=== PATIENT | female | born 1985 | race Caucasian/White ===

== ENCOUNTER → 2016-12-17 | Outpatient (CLI) | payer OTHER ==
[~2016-12-17] MED LIST: ATIVAN0.5 MG PO; BENTYL 10 MG CA10 M1 PO; BENTYL 20 MG TA20 M1 PO; CEFTIN 250 MG250 MG PO; CELEXA 10 MG TA10 M1 PO; CIPROFLOXACIN500 M1 PO; COMPAZINE10 MG PO; DARVOCET-N 1001 EACH PO; DICLEGIS DR 101 EACH PO; DOXYCYCLINE 10100 MG PO; FLAGYL 250 MG250 MG PO; FLONASE 0.05%50 MCG NS; HYDROXYZINE HCL25 M1 PO; IBUPROFEN 600600 M1 PO; IBUPROFEN 800800 M1; LINZESS290 MCG PO; LOMOTIL TABLET1 EACH PO; METFORMIN HCL500 MG PO; NAPROSYN500 MG PO; NORCO 5-325 TA1 EACH PO; PEPCID20 MG PO; PHENERGAN 25 MG25 M1 PO; PROAIR HFA8.5 GM IH; PROTONIX40 M1 PO; RISPERDAL 1 MG T1 MG PO; RISPERDAL2 MG PO; SUMYCIN 500500 MG PO; VISTARIL50 MG PO; WELLBUTRIN SR150 MG PO; ZOFRAN ODT4 MG PO; ZOFRAN4 MG PO
--- NOTE | ~2016-12-17 | 24HR ---
[address] [address] [place] [address] 24 HR ELECTROCARDIOGRAM REPORT Name: DARCIE CONSTANTINO Room #: REG CL 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 Study duration 24 hours and technical quality good. 2. Predominant rhythm sinus with sinus arrhythmia at an average heart rate of 85 bpm, range 50-152bpm. Longest RR interval 1.3sec. 3. Rare, isolated atrial premature complexes. No atrial fibrillation or atrial flutter. No heart block. No SVT 4. One PVC. No ventricular tachycardia 5. No symptoms reported. Electronically Signed On 12-19-2016 8:02:34 CDT by Feliz Hill [email or web address] <ELECTRONICALLY SIGNED> By: Feliz Hill MD, [facility] 12/19/16 0802 1645 1645 Feliz Hill MD, FAC /EPI
== END ==
LOC: CV 16:13
DX: R00.2 Palpitations (principal)

== ENCOUNTER 2017-03-26 12:50 | Emergency (ER) | payer OTHER ==
[~2017-03-26] VITALS: Ht 177.8 cm; Wt 74.8 kg
--- NOTE | ~2017-03-26 | EKG ---
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1985 Requested By: Neo Ellis Order Number: [id number] MD: Feliz Hill Measurements Intervals [place] Rate: 84 P: 60 HI: 189 QRS: 59 QRSD: 82 T: 47 QT: 377 QTc: 446 Interpretive Statements Sinus rhythm RSR' in V1 or V2, probably normal variant Compared to ECG 01/01/2009 11:20:40 RSR' in V1 or V2 now present Electronically Signed On 03-27-2017 8:55:28 CDT by Feliz Hill [email or web address] <ELECTRONICALLY SIGNED> By: Feliz iHll MD, [facility] 03/27/17 0855 1256 1256 Feliz Hill MD, [facility] /EPI
[2017-03-26 13:55] LABS: ABSOLUTE NEUTROPHILS 5.6 thou/uL (1.4-8.2); BASOPHILS 0.3 % (0.0-2.0); EOSINOPHILS 0.3 % (0.0-3.0); HEMOGLOBIN 13.5 gm/dL (12.0-15.0); LYMPHOCYTES 26.2 % (24.0-44.0); MCHC 34.5 g/dL (28.0-37.0); MCV 92.7 fL (80.0-100.0); MONOCYTES 4.5 % (1.0-8.0); PLATELET COUNT 232 thou/uL (150-400); POLYS 68.7 % (36.0-66.0); RBC 4.21 mil/uL (4.20-5.00); RDW 13.1 % (10.5-14.5); WBC 8.1 thou/uL (4.0-11.0)
[2017-03-26 13:56] LABS: MANUAL DIFF NO
[2017-03-26 14:01] LABS: ANION GAP 5 mmol/L (7-16); BUN 12 mg/dL (7-18); CALCIUM 9.3 mg/dL (8.5-10.1); CHLORIDE 105 mmol/L (98-107); CO2 29 mmol/L (21-32); CREATININE 0.9 mg/dL (0.6-1.0); GLUCOSE 102 mg/dL (74-106); SODIUM 139 mmol/L (136-145)
[2017-03-26 14:11] LABS: TROPONIN-I < 0.04 ng/mL (<0.04-0.07)
== END 2017-03-26 15:08 | disposition home or self-care (01) ==
LOC: ER 12:50
PROVIDERS: Emergency Medicine
DX: F41.9 Anxiety disorder, unspecified (principal); E28.2 Polycystic ovarian syndrome; Z90.89 Acquired absence of other organs; Z88.6 Allergy status to analgesic agent; Z88.8 Allergy status to other drugs, medicaments and biological substances

== ENCOUNTER 2017-04-20 15:07 | Emergency (ER) | payer OTHER ==
[~2017-04-20] VITALS: Ht 180.3 cm; Wt 72.6 kg
--- NOTE | ~2017-04-20 | EKG ---
[address] [place] [address] ELECTROCARDIOGRAM REPORT Name: DOUGIEDARCIE VITAL Room #: DEP [facility]#: [id number] Admission: 04/20/17 Attend Phys: Discharge: 04/20/17 Date of : 87 Report #: [id number] THIS REPORT FOR: //name// 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
[2017-04-20] MEDS ORDERED: METFORMIN HCL500 MG PO (15:12)
[2017-04-20 15:45] LABS: ABSOLUTE NEUTROPHILS 4.5 thou/uL (1.4-8.2); BASOPHILS 0.5 % (0.0-2.0); HEMATOCRIT 41.6 % (37.0-47.0); HEMOGLOBIN 13.8 gm/dL (12.0-15.0); LYMPHOCYTES 28.8 % (24.0-44.0); MCH 31.1 pg (26.0-34.0); MCHC 33.2 g/dL (28.0-37.0); MCV 93.7 fL (80.0-100.0); MONOCYTES 4.9 % (1.0-8.0); PLATELET COUNT 234 thou/uL (150-400); POLYS 64.8 % (36.0-66.0); RBC 4.44 mil/uL (4.20-5.00); RDW 12.9 % (10.5-14.5)
[2017-04-20 15:46] LABS: MANUAL DIFF NO
[2017-04-20 15:49] LABS: ANION GAP 9 mmol/L (7-16); BUN 11 mg/dL (7-18); CALCIUM 8.8 mg/dL (8.5-10.1); CHLORIDE 103 mmol/L (98-107); CO2 26 mmol/L (21-32); CREATININE 0.9 mg/dL (0.6-1.0); GLUCOSE 105 mg/dL (74-106); POTASSIUM 3.7 mmol/L (3.5-5.1); SODIUM 138 mmol/L (136-145)
[2017-04-20 15:58] LABS: ALBUMIN 4.1 g/dL (3.4-5.0); ALKALINE PHOSPHATASE 73 U/L (46-116); SGOT 11 U/L (15-37); SGPT 17 U/L (30-65); TOTAL BILIRUBIN 0.2 mg/dL (<0.1-1.0); TOTAL PROTEIN 7.5 g/dL (6.4-8.2); TROPONIN-I < 0.04 ng/mL (<0.04-0.07)
== END 2017-04-20 16:40 | disposition home or self-care (01) ==
LOC: ER 15:07
PROVIDERS: Physician Assistant
DX: R00.2 Palpitations (principal); F41.9 Anxiety disorder, unspecified; Z86.59 Personal history of other mental and behavioral disorders; Z98.890 Other specified postprocedural states; Z88.8 Allergy status to other drugs, medicaments and biological substances

== ENCOUNTER → 2018-08-30 | Outpatient (CLI) | payer BC, OTHER | LOC: ULTRA 08-26 14:22 | DX: N83.02 Follicular cyst of left ovary (principal); N92.6 Irregular menstruation, unspecified ==

== ENCOUNTER 2018-12-15 10:25 | Emergency (ER) | payer BC, OTHER ==
[~2018-12-15] VITALS: Ht 180.3 cm; Wt 79.4 kg
[2018-12-15 11:04] LABS: URINE BILIRUBIN NEGATIVE (Negative); URINE BLOOD NEGATIVE (Negative); URINE CLARITY CLEAR; URINE COLOR YELLOW; URINE GLUCOSE-RANDOM* NEGATIVE (Negative); URINE KETONES NEGATIVE (Negative); URINE LEUKOCYTES-REFLEX NEGATIVE (Negative); URINE NITRITE-REFLEX NEGATIVE (Negative); URINE PROTEIN (DIPSTICK) NEGATIVE (Negative); URINE SPECIFIC GRAVITY 1.015 (1.005-1.035); URINE UROBILINOGEN 0.2 E.U./dl (0.2-1.0)
[2018-12-15 11:21] LABS: ABSOLUTE NEUTROPHILS 5.7 thou/uL (1.4-8.2); BASOPHILS 0.4 % (0.0-2.0); EOSINOPHILS 1.2 % (0.0-3.0); HEMATOCRIT 39.6 % (37.0-47.0); HEMOGLOBIN 13.5 gm/dL (12.0-15.0); LYMPHOCYTES 25.3 % (24.0-44.0); MCH 31.6 pg (26.0-34.0); MCV 92.8 fL (80.0-100.0); MONOCYTES 3.9 % (1.0-8.0); PLATELET COUNT 250 thou/uL (150-400); POLYS 69.2 % (36.0-66.0); RBC 4.27 mil/uL (4.20-5.00); RDW 12.5 % (10.5-14.5); WBC 8.2 thou/uL (4.0-11.0)
[2018-12-15 11:45] LABS: CREATININE 0.8 mg/dL (0.6-1.0); POTASSIUM 4.4 mmol/L (3.5-5.1)
[2018-12-15 11:50] LABS: TOTAL BILIRUBIN 0.3 mg/dL (<0.1-1.0); TOTAL PROTEIN 7.5 g/dL (6.4-8.2)
[2018-12-15] MEDS ORDERED: TOPROL XL25 MG PO (13:22)
[2018-12-15] MEDS ORDERED: NORETHINDRONE0.35 MG PO (13:22)
[2018-12-15] MEDS ORDERED: TOPAMAX50 MG PO (13:22)
[2018-12-15] MEDS ORDERED: BROMOCRIPTINE2.5 M2 PO (13:23)
[2018-12-15] MEDS ORDERED: IMITREX100 MG PO (13:23)
[2018-12-15] MEDS ORDERED: METOPROLOL SUCC50 MG PO (13:24)
[2018-12-15] MEDS ORDERED: TRAZODONE HCL100 MG PO (13:24)
[2018-12-15] MEDS ORDERED: PEPCID20 MG PO (13:47)
[2018-12-15] MEDS ORDERED: ONDANSETRON HCL4 M2 PO (13:47)
[2018-12-15 14:18] VITALS: BP 99/60
--- NOTE | 2018-12-15 16:15 | EKG ---
[place] [address] [address] 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1985 Requested By: Cecily Varghese Order Number: [id number] MD: Lucas Gamino Measurements Intervals [place] Rate: 52 P: 51 ME: 172 QRS: 59 QRSD: 88 T: 64 QT: 449 QTc: 418 Interpretive Statements Sinus rhythm RSR' in V1 or V2, probably normal variant Compared to ECG 04/20/2017 15:55:34 No significant changes Electronically Signed On 12-15-2018 16:15:47 CDT by Lucas Gamino [email or web address] ��������������������������������������������� <ELECTRONICALLY SIGNED> ���������������������������������������� By: Lucas Gamino MD ��������������������������������������������� 12/15/18 1615 15 15 Lucas Gamino MD /DARREN
== END 2018-12-15 14:19 | disposition home or self-care (01) ==
LOC: ER 10:25
PROVIDERS: Physician Assistant
DX: R07.89 Other chest pain (principal); R10.13 Epigastric pain; R53.83 Other fatigue; R11.2 Nausea with vomiting, unspecified; E28.2 Polycystic ovarian syndrome; F17.200 Nicotine dependence, unspecified, uncomplicated; Z88.8 Allergy status to other drugs, medicaments and biological substances; Z90.89 Acquired absence of other organs

== ENCOUNTER 2021-04-10 18:45 | Emergency (ER) | payer OTHER ==
[~2021-04-10] VITALS: Ht 182.9 cm; Wt 61.7 kg
[~2021-04-10 18:45] MED LIST changes: +BROMOCRIPTINE2.5 M2 PO; +IMITREX100 MG PO; +METOPROLOL SUCC50 MG PO; +NORETHINDRONE0.35 MG PO; +ONDANSETRON HCL4 M2 PO; +TOPAMAX50 MG PO; +TOPROL XL25 MG PO; +TRAZODONE HCL100 MG PO
[2021-04-10] MEDS ORDERED: DIVALPROEX SOD500 MG PO (19:20)
[2021-04-10] MEDS ORDERED: MELATONIN10 M3 PO (19:20)
[2021-04-10] MEDS ORDERED: ARIPIPRAZOLE2 MG PO (19:20)
[2021-04-10] MEDS ORDERED: DIPHENHIST50 MG PO (19:21)
[2021-04-10 19:34] LABS: URINE BILIRUBIN NEGATIVE (Negative); URINE BLOOD 1+ (Negative); URINE CLARITY CLEAR; URINE COLOR YELLOW; URINE GLUCOSE-RANDOM* NEGATIVE (Negative); URINE KETONES 1+ (Negative); URINE LEUKOCYTES-REFLEX NEGATIVE (Negative); URINE NITRITE-REFLEX NEGATIVE (Negative); URINE PROTEIN (DIPSTICK) NEGATIVE (Negative); URINE UROBILINOGEN 0.2 E.U./dl (0.2-1.0)
[2021-04-10 19:45] LABS: CASTS None Seen /LPF (None Seen); SQUAMOUS 0-3 Few /LPF (0-3)
[2021-04-10 19:46] LABS: BACTERIA-REFLEX 1-9 Few /HPF (None Seen); CRYSTALS None Seen /LPF (None Seen); MUCUS 4-6 Moderate strn/LPF (None Seen); URINE RBC 1-2 Rare /HPF (NONE SEEN); URINE WBC-REFLEX 0-5 Rare /HPF (0-5)
[2021-04-10 20:26] LABS: ABSOLUTE NEUTROPHILS 5.2 thou/uL (1.4-8.2); BASOPHILS 0.2 % (0.0-2.0); EOSINOPHILS 0.8 % (0.0-3.0); HEMATOCRIT 37.8 % (37.0-47.0); HEMOGLOBIN 12.6 gm/dL (12.0-15.0); MCH 32.5 pg (26.0-34.0); MCHC 33.3 g/dL (28.0-37.0); MCV 97.5 fL (80.0-100.0); MONOCYTES 3.8 % (1.0-8.0); PLATELET COUNT 217 thou/uL (150-400); POLYS 69.2 % (36.0-66.0); RBC 3.88 mil/uL (4.20-5.00); RDW 12.8 % (10.5-14.5); WBC 7.5 thou/uL (4.0-11.0)
[2021-04-10 20:37] LABS: CALCIUM 8.3 mg/dL (8.5-10.1); CREATININE 0.7 mg/dL (0.6-1.0); POTASSIUM 3.5 mmol/L (3.5-5.1)
[2021-04-10] MEDS ORDERED: TESSALON PERLE100 MG PO (21:51)
[2021-04-10] MEDS ORDERED: MOBIC7.5 MG PO (21:51)
[2021-04-10 22:31] VITALS: BP 101/57
--- NOTE | 2021-04-11 08:06 | EKG ---
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
[2021-04-11 12:09] LABS: AMP/METHAMP Negative (Negative); BARBITURATES Negative (Negative); BENZODIAZEPINES Negative (Negative); COCAINE Negative (Negative); METHADONE Negative (Negative); OPIATES POSITIVE (Negative); PCP Negative (Negative)
== END 2021-04-10 22:32 | disposition home or self-care (01) ==
LOC: ER 18:45
PROVIDERS: Nurse Practitioner
DX: R05 Cough (principal); Z20.822 Contact with and (suspected) exposure to COVID-19; E89.0 Postprocedural hypothyroidism; Z90.49 Acquired absence of other specified parts of digestive tract; Z79.891 Long term (current) use of opiate analgesic; Z79.899 Other long term (current) drug therapy; Z88.8 Allergy status to other drugs, medicaments and biological substances

== ENCOUNTER 2021-07-22 10:45 | Emergency (ER) | payer OTHER ==
[~2021-07-22] VITALS: Ht 182.9 cm; Wt 58.5 kg
[~2021-07-22 10:45] MED LIST changes: +ARIPIPRAZOLE2 MG PO; +DIPHENHIST50 MG PO; +DIVALPROEX SOD500 MG PO; +MELATONIN10 M3 PO; +MOBIC7.5 MG PO; +TESSALON PERLE100 MG PO
[2021-07-22 11:52] VITALS: BP 98/54
[2021-07-22] MEDS ORDERED: NAPROSYN500 MG PO (13:49)
[2021-07-22] MEDS ORDERED: IMITREX 25 MG T25 M1 PO (13:49)
[2021-07-22] MEDS ORDERED: PHENERGAN 25 MG25 M1 PO (14:17)
--- NOTE | 2021-07-23 07:33 | EKG ---
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1985 Requested By: Bird Francois Order Number: [id number] MD: Feliz Hill Measurements Intervals [place] Rate: 59 P: 78 IN: 170 QRS: 70 QRSD: 87 T: 62 QT: 411 QTc: 408 Interpretive Statements Sinus bradycardia RSR' in V1 or V2, probably normal variant Compared to ECG 04/10/2021 19:45:51 No significant changes Electronically Signed On 07-23-2021 7:32:49 [employer] by Feliz Hill [email or web address] <ELECTRONICALLY SIGNED> By: Feliz Hill MD, [facility] 07/23/21 0732 1149 1149 Feliz Hill MD, FACC /EPI
== END 2021-07-22 14:51 | disposition home or self-care (01) ==
LOC: ER 10:45
DX: R51.9 Headache, unspecified (principal); Z20.822 Contact with and (suspected) exposure to COVID-19; Z90.89 Acquired absence of other organs; Z79.899 Other long term (current) drug therapy; Z91.040 Latex allergy status; Z88.8 Allergy status to other drugs, medicaments and biological substances